=== PATIENT | female | born 1940 | race Caucasian/White ===

== ENCOUNTER 2025-01-18 12:45 | Emergency (ER) | payer MEDICARE, OTHER ==
[2025-01-18 13:34] LABS: BASO % 0.3 % (0.0-1.0); EOS # 0.1 10*3/uL (0.0-0.4); EOS % 0.8 % (1.0-4.0); HEMATOCRIT 39.3 % (37.0-47.0); MEAN CORPUSCULAR HGB 28.3 pg (27.0-31.0); MEAN CORPUSCULAR HGB CONC 30.8 g/dl (33.0-37.0); MEAN PLATELET VOLUME 11.3 fl (9.6-12.3); MONO # 0.6 10*3/uL (0.1-1.0); MONO % 4.9 % (3.0-9.0); NEUT # 9.5 10*3/uL (2.3-7.9); NEUT % 84.9 % (47.0-73.0); PLATELET COUNT AUTOMATED 242 10*3/uL (130-400); RED BLOOD COUNT 4.27 10*6/uL (4.10-5.10); RED CELL DISTRI WIDTH 14.3 % (0-14.5); WHITE BLOOD COUNT 11.2 10*3/uL (4.8-10.8)
[2025-01-18 13:57] LABS: ALKALINE PHOSPHATASE 80 U/L (46-116); BUN 45 mg/dl (9-23); CHLORIDE 105 mmol/L (98-107); CPK 25 U/L (34-171); POTASSIUM 5.2 mmol/L (3.4-5.1); SGPT/ALT 24 U/L (5-49); TOTAL PROTEIN 6.5 gm/dL (6.0-8.0)
[2025-01-18 14:00] LABS: ETHYL ALCOHOL < 3.0 mg/dl (<3)
[2025-01-18 14:31] LABS: BILIRUBIN Negative (Negative); BLOOD Negative (Negative); CLARITY Clear (Clear); COLOR Yellow (Yellow); GLUCOSE 3+ (Negative); KETONE Negative (Negative); LEUKO ESTERASE 2+ (Negative); NITRITE Negative (Negative); SPECIFIC GRAVITY 1.025 (1.001-1.030)
[2025-01-18 14:38] LABS: URINE AMPHETAMINES Negative (1000ng/ml); URINE BARBITURATES Negative (200ng/ml); URINE BENZODIAZEPINES Negative (200ng/ml); URINE CANNABINOIDS (THC) Negative (50ng/ml); URINE COCAINE Negative (300ng/ml); URINE METHADONE Negative (300ng/ml); URINE OPIATES Negative (300ng/ml); URINE PHENCYCLIDINE Negative (25ng/ml)
[2025-01-18 14:44] LABS: BACTERIA TRACE; MUCOUS 1+; RBC 0-2 rbc/hpf (0-2); WBC 21-30 wbc/hpf (0-5); YEAST 2+
[2025-01-18] MEDS ORDERED: Ciprofloxacin Hydrochloride 500 MG TAB PO ONE (15:00)
[2025-01-18] MEDS ORDERED: SODIUM POLYSTYRENE SULFONATE 15 GM/60 ML BOT PO ONE (15:00)
[2025-01-18] MEDS ORDERED: ECOTRIN325 M1 PO (17:03)
[2025-01-18] MEDS ORDERED: VITAMIN D250 MCG PO (17:10)
[2025-01-18] MEDS ORDERED: HYDRALAZINE HYD50 MG PO (17:11)
[2025-01-18] MEDS ORDERED: JARDIANCE10 MG PO (17:11)
[2025-01-18] MEDS ORDERED: METOPROLOL SUC100 M1 PO (17:13)
[2025-01-18] MEDS ORDERED: MECLIZINE HCL25 M2 PO (17:13)
[2025-01-18] MEDS ORDERED: PROTONIX20 MG PO (17:15)
[2025-01-18] MEDS ORDERED: PREDNISONE5 MG PO (17:16)
[2025-01-18] MEDS ORDERED: VALSARTAN160 MG PO (17:17)
[2025-01-18] MEDS ORDERED: BUSPIRONE10 MG PO (17:17)
[2025-01-18] MEDS ORDERED: DEPAKOTE SPRIN125 MG PO (17:18)
[2025-01-18] MEDS ORDERED: DONEPEZIL HYDROC5 MG PO (17:19)
[2025-01-18] MEDS ORDERED: EXELON1 EACH T (17:19)
[2025-01-18] MEDS ORDERED: HYDROXYZINE PAM50 MG PO (17:21)
[2025-01-18] MEDS ORDERED: MIRTAZAPINE15 M2 PO (17:22)
[2025-01-18] MEDS ORDERED: LORAZEPAM0.5 M1 PO (17:22)
[2025-01-18] MEDS ORDERED: QUETIAPINE FUM100 M2 PO (17:23)
[2025-01-18] MEDS ORDERED: SEROQUEL25 MG PO (17:24)
== END 2025-01-18 15:13 ==
LOC: ED 12:45
PROVIDERS: Nurse Practitioner Family
DX: F23 Brief psychotic disorder (principal); N39.0 Urinary tract infection, site not specified; F63.81 Intermittent explosive disorder; E87.5 Hyperkalemia; E11.9 Type 2 diabetes mellitus without complications; Z88.8 Allergy status to other drugs, medicaments and biological substances